=== PATIENT | female | born 1960 | race Caucasian/White ===

== ENCOUNTER 2022-06-03 06:33 | Day surgery (SDC) | payer OTHER ==
[2022-05-27 16:19] LABS: BASOPHILS % (AUTO) 0.4 % (0-1); EOSINOPHILS # (AUTO) 0.1 X10'3 (0-0.9); EOSINOPHILS % (AUTO) 0.8 % (0-6); LYMPHOCYTES # (AUTO) 1.8 X10'3 (1.1-4.8); LYMPHOCYTES % (AUTO) 22.9 % (21-51); MEAN CORPUSCULAR HEMOGLOBIN 36.3 PG (27.0-31.0); MEAN CORPUSCULAR HGB CONC 34.1 g/dL (33.0-36.5); MEAN CORPUSCULAR VOLUME 106.5 FL (78-98); MEAN PLATELET VOLUME 8.7 FL (7.4-10.4); MONOCYTES # (AUTO) 0.7 X10'3 (0-0.9); MONOCYTES % (AUTO) 8.9 % (2-12); NEUTROPHILS # (AUTO) 5.1 X10'3 (1.8-7.7); PRE OP HEMATOCRIT 44.2 % (35.0-45.0); PRE OP HEMOGLOBIN 15.1 g/dL (12.0-16.0); PRE OP PLATELET COUNT 198 X10'3 (140-440); RED BLOOD COUNT 4.15 X10'6 (4.20-5.60); RED CELL DISTRIBUTION WIDTH 12.8 % (11.5-14.5)
[2022-05-27 16:29] LABS: ALBUMIN 3.8 G/DL (3.4-5.0); ALKALINE PHOSPHATASE 77 IU/L (46-116); BLOOD UREA NITROGEN 17 MG/DL (7-18); BUN/CREATININE RATIO 26.6 (10.0-20.0); CALCIUM 9.2 MG/DL (8.5-10.1); CHLORIDE 104 MMOL/L (99-107); CREATININE 0.64 MG/DL (0.40-0.90); PRE OP ALT 35 U/L (30-65); PRE OP ANION GAP 7 (8-16); PRE OP AST 25 U/L (10-37); PRE OP BILIRUB, TOTAL 0.5 MG/DL (0.0-1.0); PRE OP GLUCOSE 143 MG/DL (70-104); PRE OP POTASSIUM 3.4 MMOL/L (3.4-5.1); PRE OP SODIUM 141 MMOL/L (135-145); TOTAL CARBON DIOXIDE 30.1 MMOL/L (24-32); TOTAL PROTEIN 7.7 G/DL (6.4-8.2); eGFR > 90 ML/MIN
[~2022-06-03] VITALS: Ht 152.4 cm; Wt 66.7 kg
[2022-06-03] VITALS (27 sets, daily range): BP systolic 129–178; BP diastolic 74–97
[2022-06-03] MEDS: DOCUMENT DATE & TIME OF BETA-BLOCKER PO ONE (05:30)
[~2022-06-03 06:33] MED LIST: AMLO2.5T5 PO; CALC600T22 PO; CHOL100046 PO; CYAN250010 PO; HYDR12.55 PO; METO50TA16 PO; PRIM50TA5 PO; VITA400T10 PO; VITAMIN B6 PO; [UNRECOGNIZED DRUG - REMARK] PO
[2022-06-03] MEDS: morphine 4 MG/ML inj SYRINge IV ONE ×2 (07:00→08:25)
--- NOTE | 2022-06-03 07:00 | NUR ---
PT WAS ABLE TO COMPLETE ALL 5 SHOWERS-OINTMENT NOT ORDERED, PT HAS PULSES PRESENT-CSM INTACT, ABLE TO REVIEW RESOURCES GIVEN AT [facility]
[2022-06-03] MEDS ORDERED: magnesium hydroxide 30ml (MOM) UD suspension PO PRN (07:40)
[2022-06-03] MEDS ORDERED: ondansetron/PF 4mg/2ml inj IV PRN ×2 (07:40→08:20)
[2022-06-03] MEDS ORDERED: diphenhydrAMINE 25mg capsule PO PRN ×2 (07:40)
[2022-06-03] MEDS ORDERED: potassium cl 20mEq in 1/2 NS 1,000 ML IV SCH (07:40)
[2022-06-03] MEDS ORDERED: HYDROcodone/acetaminophen 10/325mg tab PO PRN (07:40)
[2022-06-03] MEDS: tranexamic acid inj. 1,000 MG in normal saline 100ml IV soln 90 ML IV ONE ×2 (07:40→14:29)
[2022-06-03] MEDS ORDERED: acetaminophen 325mg tablet PO PRN (07:40)
[2022-06-03] MEDS ORDERED: HYDROmorphone 1 mg/ml syringe IV PRN (07:40)
[2022-06-03] MEDS ORDERED: HYDROmorphone inj. 0.5 MG/0.5 ML DISP.SYRIN IV PRN (07:40)
[2022-06-03] MEDS ORDERED: naloxone 0.4 mg/ml inj IV PRN (07:40)
[2022-06-03] MEDS: MIDAZolam 5mg/ml 2ml vial IV ONE (07:50)
[2022-06-03] MEDS: vancomycin/NS 1 GM ADD-VANTAGE 250 ML IV ONE (07:59)
[2022-06-03] MEDS: famotidine 20mg tablet PO ONE (08:00)
[2022-06-03] MEDS: ringers solution, lacted 1,000 ML IV SCH ×2 (08:00→08:20)
[2022-06-03] MEDS ORDERED: MIDAZolam 1mg/ml 10ml vial ONE (08:12)
[2022-06-03] MEDS ORDERED: fentaNYL/PF 50MCG/1 ML 2ML syringe ONE (08:13)
[2022-06-03] MEDS ORDERED: morphine 4 MG/ML inj SYRINge IV PRN (08:20)
[2022-06-03] MEDS ORDERED: hydrALAZINE 20mg/ml inj. IV PRN (08:20)
[2022-06-03] MEDS ORDERED: morphine 2 MG/ML inj. syringe IV PRN (08:20)
[2022-06-03] MEDS: cloNIDine hcl/PF 100mcg/ml inj ONE (09:43)
[2022-06-03] MEDS: epiNEPHrine 1 mg/ml inj ONE (09:44)
[2022-06-03] MEDS: ketorolac trometh. 30mg/ml inj. ONE (09:45)
[2022-06-03] MEDS: ROPIVAcaine 0.5% (5mg/ml) 30ml vial ONE (09:46)
[2022-06-03] MEDS: vancomycin 1,000mg inj ONE (09:52)
[2022-06-03] MEDS ORDERED: midazolam 1 mg/ML 2ml injection ONE ×2 (10:07)
--- NOTE | 2022-06-03 10:23 | NUR ---
Received from OR via , accompanied by Anesthesiologist SHILA AND OR NURSE and report given by Anesthesiolgist. PT IS DROWSY YET ABLE TO RESPOND TO VERBAL COMMANDS. PT IS VISIBLY SHIVERING; DEMEROL GIVEN. LT HIP EMILIANO DRESSING; CDI. IMMOBILIZER IN PLACE. 20G TO RT LOWER ARM. VSS Addendum: 06/03/22 at 1124 by Raiza Beckett RN Amended: Links added.
[2022-06-03] MEDS: meperidine/PF 25mg/ml syringe ONE (10:34)
[2022-06-03] MEDS: fentaNYL/PF 50MCG/1 ML 2ML syringe IV PRN ×2 (11:02→11:50)
--- NOTE | 2022-06-03 12:50 | NUR ---
PT BP CUFF REPORTING A LEAK ON MONITOR SO BREAK IN BP'S. 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 SBP WARRANTED A DOSE OF LEBATOLOL; SBP WNL. Addendum: 06/03/22 at 1335 by Raiza Beckett RN Amended: Links added.
[2022-06-03] MEDS: labetalol 20mg/4ml (5mg/ml) syringe IV PRN (13:06)
[2022-06-03] MEDS: meperidine/PF 25mg/ml syringe IV PRN (13:07)
--- NOTE | 2022-06-03 13:23 | NUR ---
REPORT GIVEN AND ALL QUESTIONS ANSWERED. PATIENT TRANSFERRED TO SURG. LABELED BELONGINGS PRESENT AND DELIVERED TO ROOM. RN PRESENT ALL CRITERIA FOR TRANSFER BACK TO THE FLOOR HAS BEEN ACHIEVED. VSS. PAIN AT A TOLERABLE LEVEL. BED LOW, CALL LIGHT PRESENT AND 2 RAILS DOWN. RN AWARE THAT PATIENT HAS ARRIVED. TO ACCEPT CARE OF PATIENT. Addendum: 06/03/22 at 1343 by Raiza Beckett RN Amended: Links added.
--- NOTE | 2022-06-03 13:51 | NUR ---
Patient in room . I have received report from DANETTE Rodriguez and had the opportunity to ask questions and assume patient care.
--- NOTE | 2022-06-03 13:52 | NUR ---
Pt. arrived to floor via bed from OR. Pt. A & O. Pt. c/o pain, pt. received pain med in PACU prior to transport to floor. Arturo dressing to L hip cdi, immobilizer in place. Ice pack placed to L hip. at bedside.
[2022-06-03] MEDS: gabapentin 300mg capsule PO SCH (14:29)
[2022-06-03] MEDS: HYDROcodone/acetaminophen 10/325mg tab PO PRN (14:39)
--- NOTE | 2022-06-03 15:15 | NUR ---
Called to Dr. Ba to let him know that patient has been cleared from PT for discharge. Also let Dr. Ba know that patient's BP has been 151//76. 147/78 and 162/89 and per power and recovery superintendent Jennifer patient did not receive her [address] Ba ok for patient to receive microzide late at this time and ok with patient to dc. Will administer microzide and continue to monitor.
[2022-06-03] MEDS: HYDROchlorothiazide 12.5mg capsule PO SCH (15:23)
[2022-06-03] MEDS: ceFAZolin/D5W- 1GM premix 50 ML IV SCH (15:23)
--- NOTE | 2022-06-03 17:10 | NUR ---
Call to Dr. Ba to report high BP 164/90. states ok to continue with discharge.
--- NOTE | 2022-06-03 18:06 | NUR ---
Problems reprioritized. Patient report given, questions answered & plan of care reviewed with DANETTE Tucker.
--- NOTE | 2022-06-03 18:19 | NUR ---
Discharge instructions given to pt with verbalized understanding. Discussed dressing change, shower, weight bearing and positioning of operated site with verbalized understanding. Cold powder pack given. Extra EMILIANO dressing given. Follow up appointment with MD with verbalized understanding.
--- NOTE | 2022-06-03 18:40 | NUR ---
Patient in room [facility]. I have received report from DANETTE Clayton and had the opportunity to ask questions and assume patient care.
--- NOTE | 2022-06-03 18:41 | NUR ---
pt discharged. taken out of facility in wheelchair.
[2022-06-03] MEDS ORDERED: ascorbic acid 500mg tablet PO SCH (20:00)
[2022-06-03] MEDS ORDERED: metoprolol tartrate 50mg tablet PO SCH (20:00)
[2022-06-03] MEDS ORDERED: vancomycin/NS 1 GM ADD-VANTAGE 250 ML IV SCH (20:00)
[2022-06-03] MEDS ORDERED: primidone 50mg tablet PO SCH (20:00)
[2022-06-03] MEDS ORDERED: sennosides 8.6mg tablet PO SCH (21:00)
[2022-06-04] MEDS ORDERED: amLODIPine 2.5mg tablet PO SCH (08:00)
[2022-06-04] MEDS ORDERED: multivitamins, therapeutics tablet PO SCH (08:00)
[2022-06-04] MEDS ORDERED: bisacodyl 10mg suppository rectal RC PRN (08:00)
[2022-06-04] MEDS ORDERED: aspirin 325mg tablet PO SCH (08:30)
--- NOTE | 2022-06-04 17:29 | NUR ---
Joint surgery consult: Pt s/p L hip surgery but discharged prior to RD visit this admit. Written high protein diet ed w/ RD contact information mailed to pt home address provided in EMR. Addendum: 06/04/22 at [address] Amended: Links added.
[2022-06-04] MEDS ORDERED: celeCOXIB 100mg capsule PO SCH (20:00)
== END 2022-06-03 18:43 | disposition home or self-care (01) ==
LOC: PAS 06:33 → SUR 3N 07:39 → UNDOADMIN 07:39 → UNDODISIN 18:43 → PAS 18:43
PROVIDERS: ATTEND Orthopaedic Surgery
DX: M16.12 Unilateral primary osteoarthritis, left hip (principal); I10 Essential (primary) hypertension; Z79.899 Other long term (current) drug therapy; Z98.890 Other specified postprocedural states; Z88.0 Allergy status to penicillin
CPT/HCPCS: 27130; 36415; 71046; 72170; 80053; 82948; 85025; 86885; 86900; 86901; 87081; 97110; 97161; 97530; C1776; J0171; J0690; J0735; J1885; J2175; J2250; J2795; J3010; J3370; J3490; J7030; J7060; J7120; Z7506; Z7508; Z7512; A4615; A7000; G0378